=== PATIENT | female | born 1980 | race Caucasian/White ===

== ENCOUNTER 2024-04-12 22:16 | Emergency (ER) | payer BC, OTHER ==
[~2024-04-12] VITALS: Ht 157.5 cm; Wt 71.7 kg
[~2024-04-12 22:16] MED LIST: SYN50 PO
[2024-04-12 22:31] VITALS: BP_SYST 133; PULSE 85; RESP 18; TEMP 98.3; O2SAT 97
[2024-04-12] MEDS: HYDROcodone/ACETAMIN 5-325 MG TAB (NORCO/ VICODIN) PO ONE (23:18)
[2024-04-12] MEDS ORDERED: TRAM50TA2 PO (23:25)
[2024-04-12] MEDS ORDERED: IBUP-1969 PO (23:27)
[2024-04-13 00:01] VITALS: BP_SYST 133; PULSE 85; RESP 18; TEMP 98.3; O2SAT 97
== END 2024-04-13 00:01 | disposition home or self-care (01) ==
LOC: SED 22:16
DX: S82.52XA Displaced fracture of medial malleolus of left tibia, initial encounter for closed fracture (principal); S93.492A Sprain of other ligament of left ankle, initial encounter; Z79.890 Hormone replacement therapy; Z88.2 Allergy status to sulfonamides; Z79.899 Other long term (current) drug therapy; X50.1XXA Overexertion from prolonged static or awkward postures, initial encounter; Y93.89 Activity, other specified; Y92.89 Other specified places as the place of occurrence of the external cause; Y99.8 Other external cause status
CPT/HCPCS: 99283